=== PATIENT | female | born 1995 | race Hispanic/Latino ===

== ENCOUNTER 2017-08-17 19:25 | Emergency (ER) | payer MEDICARE ==
[~2017-08-17] VITALS: Ht 170.2 cm; Wt 68.0 kg
[2017-08-17] MEDS ORDERED: SODIUM CHLORIDE 0.9% 1000ML 1,000 ML ONE (19:45)
[2017-08-17] MEDS ORDERED: ACETAMINOPHEN 325 MG TAB PO ONE (19:45)
[2017-08-17] MEDS ORDERED: IBUPROFEN 200 MG TAB PO ONE (19:45)
[2017-08-17] MEDS ORDERED: SODIUM CHLORIDE 0.9% 1000ML 1,000 ML IV STA (20:51)
[2017-08-17] MEDS ORDERED: IBUPROFEN400 MG PO (22:07)
[2017-08-17 22:17] VITALS: BP 137/82
[2017-08-18] MEDS ORDERED: SODIUM CHLORIDE 0.9% 1000ML 1,000 ML IV STA (22:00)
== END 2017-08-17 22:21 | disposition home or self-care (01) ==
LOC: FSED 19:25
DX: R50.9 Fever, unspecified (principal)
CPT/HCPCS: 80053; 85025; 87400; 93005; 96360; 99283; J7030

== ENCOUNTER 2017-11-29 17:10 | Emergency (ER) | payer OTHER ==
[~2017-11-29] VITALS: Ht 170.2 cm; Wt 68.0 kg
[~2017-11-29 17:10] MED LIST: IBUPROFEN400 MG PO
== END 2017-11-29 21:00 | disposition home or self-care (01) ==
LOC: FSED 17:14
DX: R10.32 Left lower quadrant pain (principal); R11.0 Nausea; F41.9 Anxiety disorder, unspecified
CPT/HCPCS: 74021; 76857; 80053; 81003; 81025; 85025; 99284